=== PATIENT | female | born 1930 | race African-American/Black ===

== ENCOUNTER 2016-05-22 10:37 | Inpatient (IN) | payer SELFPAY ==
[~2016-05-22] VITALS: Ht 165.1 cm; Wt 80.9 kg
[2016-05-22] MEDS ORDERED: SODIUM CHLORIDE 0.9% 1,000 ML IV ONE (10:49)
[2016-05-22] MEDS ORDERED: MORPHINE SULFATE 2 MG/ML CPJ (NOT FOR IM USE) IV ONE (11:00)
[2016-05-22 11:45] LABS: BASOPHILS % 0.5 % (0.0-2.0); EOSINOPHILS % 0.7 % (0.0-5.0); HEMATOCRIT. 36.6 % (36.0-48.0); HEMOGLOBIN. 12.1 g/dL (12.0-16.0); LYMPHOCYTES % 14.2 % (20.0-50.0); MEAN CORPUSCULAR HEMOGLOBIN 28.6 pg (28.0-32.0); MEAN CORPUSCULAR VOLUME 86.7 fL (81.0-99.0); MEAN PLATELET VOLUME 7.2 fl (7.4-10.4); NEUTROPHILS % 78.6 % (40.0-76.0); PLATELET 247 x1000/uL (130-400); RED BLOOD CELL COUNT 4.22 mill/uL (4.2-5.4); RED CELL DISTRIBUTION WIDTH 15.2 % (11.6-14.6); WHITE BLOOD COUNT 7.5 x1000/uL (4.5-11.0)
[2016-05-22 11:52] LABS: CHLORIDE 109 mEq/L (98-107); INDEX HEMOLYSI 1 (1-3); INDEX ICTERIC 1 (1-4); INDEX LIPEMIC 1 (1-3)
[2016-05-22 11:54] LABS: ALBUMIN 2.9 g/dL (3.4-5.0); ANION GAP 11; CALCIUM 8.2 mg/dL (8.5-10.1); CARBON DIOXIDE 27 mEq/L (21-32); INR 1.1
[2016-05-22 11:59] LABS: ALANINE AMINOTRANSFERASE 15 IU/L (13-61); UREA NITROGEN BLOOD 18 mg/dL (7-21); eGFR > 60 mL/min (>60)
[2016-05-22 12:45] LABS: CLARITY URINE CLEAR (CLEAR); COLOR URINE YELLOW (YELLOW); GLUCOSE URINE 1+ (NEGATIVE); KETONES URINE NEGATIVE (NEGATIVE); LEUKOCYTE ESTERASE URINE 2+ (NEGATIVE); NITRITE URINE NEGATIVE (NEGATIVE); OCCULT BLOOD URINE 1+ (NEGATIVE); PH URINE 7.5 (4.5-8.0); PROTEIN URINE NEGATIVE (NEGATIVE); SPECIFIC GRAVITY URINE 1.014 (1.005-1.030)
[2016-05-22 13:09] LABS: BACTERIA URINE 1+; SQUAMOUS EPITHELIAL CELL URINE FEW /lpf (RARE/1+)
[2016-05-22] MEDS ORDERED: CLONIDINE 0.1MG TABLET PO PRN (14:15)
[2016-05-22] MEDS ORDERED: DIPHENHYDRAMINE 50MG/ML VIAL IV PRN (14:15)
[2016-05-22] MEDS ORDERED: MAGNESIUM/ALUMINUM HYDROXIDE/SIMETHICONE 30ML UDC PO PRN (14:15)
[2016-05-22] MEDS ORDERED: ONDANSETRON HCL 4MG/2ML VIAL IV PRN (14:15)
[2016-05-22 15:05] LABS: MAGNESIUM 1.9 mg/dL (1.8-2.4)
[2016-05-22] MEDS ORDERED: POTASSIUM CHLORIDE 20MEQ TABLET SR PO ONE (16:15)
[2016-05-22] MEDS ORDERED: CEFTRIAXONE 1 G PREMIX 50 ML IV ONE (16:15)
[2016-05-22 17:00] VITALS: BP 170/102
[2016-05-22 17:06] VITALS: BP 170/102
[2016-05-22] MEDS: DOCUSATE SODIUM 100MG CAPSULE PO SCH (17:49)
[2016-05-22] MEDS: MORPHINE SULFATE 2 MG/ML CPJ (NOT FOR IM USE) IV PRN (17:50)
[2016-05-22] MEDS ORDERED: MAGNESIUM 2 G PREMIX 50 ML IV NR (18:00)
[2016-05-22 20:00] VITALS: BP 143/92
[2016-05-22] MEDS: AMLODIPINE 5MG TABLET PO SCH (20:52)
[2016-05-22] MEDS ORDERED: POTASSIUM CHLORIDE 20MEQ TABLET SR PO NR (21:00)
[2016-05-22] MEDS ORDERED: DEXTROSE 50% WATER 50ML SYRINGE IV PRN (21:15)
[2016-05-22 22:45] VITALS: BP 92/42
[2016-05-22] MEDS ORDERED: DIGOXIN 500MCG/2ML AMP IV NR (22:45)
[2016-05-22] MEDS: SODIUM CHLORIDE 0.9% 1,000 ML IV SCH (23:13)
[2016-05-22 23:15] VITALS: BP 91/58
[2016-05-23] VITALS (12 sets, daily range): BP systolic 88–143; BP diastolic 52–77
[2016-05-23] MEDS ORDERED: DILTIAZEM HCL 125 MG in DEXT 5% WATER 100 ML IV ONE (02:15)
[2016-05-23 03:11] LABS: BASOPHILS % 0.3 % (0.0-2.0); EOSINOPHILS % 0.2 % (0.0-5.0); HEMOGLOBIN. 11.7 g/dL (12.0-16.0); LYMPHOCYTES % 12.8 % (20.0-50.0); MEAN CORPUSCULAR HEMOGLOBIN 28.9 pg (28.0-32.0); MEAN CORPUSCULAR HGB CONC 33.3 g/dL (31.0-37.0); MEAN CORPUSCULAR VOLUME 86.7 fL (81.0-99.0); MEAN PLATELET VOLUME 7.1 fl (7.4-10.4); NEUTROPHILS % 77.7 % (40.0-76.0); PLATELET 241 x1000/uL (130-400); RED BLOOD CELL COUNT 4.04 mill/uL (4.2-5.4); RED CELL DISTRIBUTION WIDTH 14.9 % (11.6-14.6); WHITE BLOOD COUNT 10.2 x1000/uL (4.5-11.0)
[2016-05-23] MEDS: DILTIAZEM HCL 125 MG in DEXT 5% WATER 100 ML IV PRN (03:35)
[2016-05-23] MEDS ORDERED: SODIUM CHLORIDE 0.9% 10ML VIAL ONE (06:00)
[2016-05-23] MEDS ORDERED: IOHEXOL-350 100 ML BOTTLE ONE (06:00)
[2016-05-23] MEDS: BLOOD SUGAR DIAGNOSTIC STRIP TEST SCH ×4 (06:53→21:24)
[2016-05-23] MEDS: INSULIN LISPRO 100 UNITS/ML SUBCUT SCH ×4 (07:20→21:00)
[2016-05-23] MEDS ORDERED: POTASSIUM CHLORIDE 20MEQ TABLET SR PO SCH (09:00)
[2016-05-23 09:07] LABS: T4 FREE 0.9 ng/dL (0.76-1.46)
[2016-05-23] MEDS ORDERED: AMIODARONE HCL 900 MG in DEXT 5% WATER 500 ML IV SCH (09:30)
[2016-05-23] MEDS: ENOXAPARIN 40MG/0.4ML SYR SUBCUT SCH ×2 (10:00→11:22)
[2016-05-23] MEDS: DIGOXIN 500MCG/2ML AMP IV NR ×2 (10:20→10:42)
[2016-05-23] MEDS: DOCUSATE SODIUM 100MG CAPSULE PO SCH ×2 (10:27→17:07)
[2016-05-23] MEDS: PANTOPRAZOLE SODIUM 40 MG/VIAL IV SCH (10:27)
[2016-05-23] MEDS: AMLODIPINE 5MG TABLET PO SCH ×2 (10:28→21:24)
[2016-05-23] MEDS: MORPHINE SULFATE 2 MG/ML CPJ (NOT FOR IM USE) IV PRN ×3 (10:31→23:14)
[2016-05-23] MEDS: LEVOTHYROXINE SODIUM 100MCG TABLET PO SCH (13:01)
[2016-05-23 15:22] LABS: CREATINE KINASE MB FRACTION 3.8 ng/mL (0.5-3.6)
[2016-05-23 15:27] LABS: TROPONIN I 0.44 ng/mL (0.00-0.04)
[2016-05-23] MEDS ORDERED: LEVO88TA2 PO (18:27)
[2016-05-23] MEDS ORDERED: ATOR40TA70 PO (18:27)
[2016-05-23] MEDS ORDERED: CHLO25TA27 PO (18:27)
[2016-05-23] MEDS ORDERED: DILT240C91 PO (18:27)
[2016-05-23] MEDS ORDERED: LISI-604 PO (18:27)
[2016-05-23] MEDS: SODIUM CHLORIDE 0.9% 1,000 ML IV SCH (20:20)
[2016-05-23 23:10] LABS: CREATINE KINASE MB FRACTION 2.5 ng/mL (0.5-3.6); TROPONIN I 0.32 ng/mL (0.00-0.04)
[2016-05-24] VITALS (10 sets, daily range): BP systolic 104–184; BP diastolic 60–128
[2016-05-24] MEDS: SODIUM CHLORIDE 0.9% 1,000 ML IV SCH ×2 (03:03→15:26)
[2016-05-24] MEDS: MORPHINE SULFATE 2 MG/ML CPJ (NOT FOR IM USE) IV PRN ×3 (03:15→20:24)
[2016-05-24] MEDS: LEVOTHYROXINE SODIUM 100MCG TABLET PO SCH (06:09)
[2016-05-24] MEDS: BLOOD SUGAR DIAGNOSTIC STRIP TEST SCH ×4 (06:48→20:28)
[2016-05-24] MEDS: INSULIN LISPRO 100 UNITS/ML SUBCUT SCH ×4 (06:48→20:28)
[2016-05-24 07:24] LABS: CREATINE KINASE MB FRACTION 2.1 ng/mL (0.5-3.6); TROPONIN I 0.21 ng/mL (0.00-0.04)
[2016-05-24] MEDS: DOCUSATE SODIUM 100MG CAPSULE PO SCH ×2 (10:00→17:00)
[2016-05-24] MEDS: ENOXAPARIN 40MG/0.4ML SYR SUBCUT SCH (10:00)
[2016-05-24] MEDS: AMLODIPINE 5MG TABLET PO SCH ×2 (10:00→20:52)
[2016-05-24] MEDS: PANTOPRAZOLE SODIUM 40 MG/VIAL IV SCH (10:51)
[2016-05-24] MEDS ORDERED: HYDRALAZINE 20MG/ML VIAL IV NR (14:45)
[2016-05-24] MEDS ORDERED: VANCOMYCIN HCL 500 MG/VIAL ONE (14:54)
[2016-05-24] MEDS ORDERED: BACITRACIN ZINC 15GM TUBE TOP ONE (15:48)
[2016-05-24] MEDS ORDERED: NORMAL SALINE 0.9% 10 ML SYR ONE (16:29)
[2016-05-24] MEDS ORDERED: FENTANYL CITRATE/PF 50MCG/ML 2ML VIAL ONE (17:53)
[2016-05-24] MEDS ORDERED: ONDANSETRON HCL 4MG/2ML VIAL ONE (18:25)
[2016-05-24] MEDS ORDERED: GLYCOPYRROLATE 0.2 MG/ML 2ML VIAL ONE (18:27)
[2016-05-24] MEDS ORDERED: NEOSTIGMINE METHYLSULFATE 1MG/ML 10 ML VIAL ONE (18:27)
[2016-05-24] MEDS ORDERED: SODIUM CHLORIDE 0.9% 1,000 ML IV SCH (18:57)
[2016-05-24] MEDS ORDERED: ONDANSETRON HCL 4MG/2ML VIAL IV PRN (19:00)
[2016-05-24] MEDS ORDERED: HYDROMORPHONE HCL/PF 2MG/ML CPJ IV PRN (19:00)
[2016-05-24] MEDS: METOPROLOL TARTRATE 25MG TABLET PO SCH (20:52)
[2016-05-24] MEDS ORDERED: CEFAZOLIN SODIUM 1000MG/VIAL IV SCH (22:00)
[2016-05-24] MEDS: CEFAZOLIN 1000MG PREMIX 50 ML IV SCH (22:27)
[2016-05-24] MEDS: HYDROMORPHONE HCL/PF 2MG/ML CPJ IV PRN (23:05)
[2016-05-25] VITALS (12 sets, daily range): BP systolic 98–141; BP diastolic 27–107
[2016-05-25] MEDS: SODIUM CHLORIDE 0.9% 1,000 ML IV SCH ×3 (01:52→20:40)
[2016-05-25] MEDS: MORPHINE SULFATE 2 MG/ML CPJ (NOT FOR IM USE) IV PRN (03:01)
[2016-05-25] MEDS: CEFAZOLIN 1000MG PREMIX 50 ML IV SCH (06:19)
[2016-05-25] MEDS: BLOOD SUGAR DIAGNOSTIC STRIP TEST SCH ×4 (06:19→20:40)
[2016-05-25] MEDS: LEVOTHYROXINE SODIUM 100MCG TABLET PO SCH (06:19)
[2016-05-25] MEDS: FAMOTIDINE 20MG TABLET PO SCH (06:19)
[2016-05-25] MEDS: HYDROMORPHONE HCL/PF 2MG/ML CPJ IV PRN (06:56)
[2016-05-25] MEDS: DOCUSATE SODIUM 100MG CAPSULE PO SCH ×2 (08:13→16:32)
[2016-05-25] MEDS: AMLODIPINE 5MG TABLET PO SCH ×2 (08:14→20:39)
[2016-05-25] MEDS: ENOXAPARIN 40MG/0.4ML SYR SUBCUT SCH (08:14)
[2016-05-25] MEDS: METOPROLOL TARTRATE 25MG TABLET PO SCH ×2 (08:14→20:39)
[2016-05-25] MEDS: INSULIN LISPRO 100 UNITS/ML SUBCUT SCH ×4 (08:15→20:40)
[2016-05-25] MEDS: ACETAMINOPHEN 325MG TABLET PO PRN ×2 (17:15→23:14)
[2016-05-26] VITALS (13 sets, daily range): BP systolic 41–120; BP diastolic 17–67
[2016-05-26] MEDS: LEVOTHYROXINE SODIUM 100MCG TABLET PO SCH (06:31)
[2016-05-26] MEDS: SODIUM CHLORIDE 0.9% 1,000 ML IV SCH ×2 (06:31→15:48)
[2016-05-26] MEDS: BLOOD SUGAR DIAGNOSTIC STRIP TEST SCH ×4 (06:31→20:40)
[2016-05-26] MEDS: FAMOTIDINE 20MG TABLET PO SCH (06:31)
[2016-05-26] MEDS: INSULIN LISPRO 100 UNITS/ML SUBCUT SCH ×4 (06:32→20:40)
[2016-05-26 06:56] LABS: BASOPHILS % 0.4 % (0.0-2.0); EOSINOPHILS % 1.7 % (0.0-5.0); HEMATOCRIT. 31.5 % (36.0-48.0); HEMOGLOBIN. 10.4 g/dL (12.0-16.0); LYMPHOCYTES % 9.6 % (20.0-50.0); MEAN CORPUSCULAR HEMOGLOBIN 28.9 pg (28.0-32.0); MEAN CORPUSCULAR HGB CONC 33.1 g/dL (31.0-37.0); MEAN CORPUSCULAR VOLUME 87.1 fL (81.0-99.0); MEAN PLATELET VOLUME 7.4 fl (7.4-10.4); MONOCYTES % 12.4 % (2.0-8.0); NEUTROPHILS % 75.9 % (40.0-76.0); PLATELET 211 x1000/uL (130-400); RED BLOOD CELL COUNT 3.61 mill/uL (4.2-5.4); RED CELL DISTRIBUTION WIDTH 14.9 % (11.6-14.6); WHITE BLOOD COUNT 10.5 x1000/uL (4.5-11.0)
[2016-05-26 07:38] LABS: ANION GAP 13; CALCIUM 8.3 mg/dL (8.5-10.1); CARBON DIOXIDE 25 mEq/L (21-32); CHLORIDE 106 mEq/L (98-107); INDEX HEMOLYSI 1 (1-3); INDEX ICTERIC 1 (1-4); INDEX LIPEMIC 1 (1-3); UREA NITROGEN BLOOD 11 mg/dL (7-21)
[2016-05-26 07:40] LABS: eGFR > 60 mL/min (>60)
[2016-05-26] MEDS: ASPIRIN 81MG TABLET PO SCH (08:50)
[2016-05-26] MEDS: DOCUSATE SODIUM 100MG CAPSULE PO SCH ×2 (08:50→17:20)
[2016-05-26] MEDS: ENOXAPARIN 40MG/0.4ML SYR SUBCUT SCH (08:50)
[2016-05-26] MEDS: METOPROLOL TARTRATE 25MG TABLET PO SCH ×2 (08:53→20:39)
[2016-05-26] MEDS: AMLODIPINE 5MG TABLET PO SCH ×2 (08:53→20:39)
[2016-05-26] MEDS: ACETAMINOPHEN 325MG TABLET PO PRN ×2 (10:56→17:41)
[2016-05-26] MEDS: DILTIAZEM HCL 125 MG in DEXT 5% WATER 100 ML IV PRN (16:57)
[2016-05-26] MEDS ORDERED: DIGOXIN 500MCG/2ML AMP IV NR (17:15)
[2016-05-26] MEDS: MORPHINE SULFATE 2 MG/ML CPJ (NOT FOR IM USE) IV PRN (17:54)
[2016-05-27] VITALS (12 sets, daily range): BP systolic 108–169; BP diastolic 48–104
[2016-05-27] MEDS: ACETAMINOPHEN 325MG TABLET PO PRN ×4 (02:05→21:18)
[2016-05-27] MEDS: SODIUM CHLORIDE 0.9% 1,000 ML IV SCH ×2 (02:37→13:39)
[2016-05-27] MEDS: FAMOTIDINE 20MG TABLET PO SCH (06:21)
[2016-05-27] MEDS: LEVOTHYROXINE SODIUM 100MCG TABLET PO SCH (06:21)
[2016-05-27] MEDS: BLOOD SUGAR DIAGNOSTIC STRIP TEST SCH ×4 (06:21→20:28)
[2016-05-27] MEDS: INSULIN LISPRO 100 UNITS/ML SUBCUT SCH ×4 (07:18→20:27)
[2016-05-27] MEDS: ENOXAPARIN 40MG/0.4ML SYR SUBCUT SCH (08:22)
[2016-05-27] MEDS: AMLODIPINE 5MG TABLET PO SCH (08:23)
[2016-05-27] MEDS: DOCUSATE SODIUM 100MG CAPSULE PO SCH ×2 (08:23→17:36)
[2016-05-27] MEDS: METOPROLOL TARTRATE 25MG TABLET PO SCH ×2 (08:23→20:27)
[2016-05-27] MEDS: ASPIRIN 81MG TABLET PO SCH (08:23)
[2016-05-27] MEDS: MORPHINE SULFATE 2 MG/ML CPJ (NOT FOR IM USE) IV PRN (10:01)
[2016-05-27] MEDS: HYDROCODONE/ACETAMINOPHEN 10/325MG TABLET PO PRN (18:39)
[2016-05-27] MEDS: DILTIAZEM HCL 90MG TABLET PO SCH (21:18)
[2016-05-28] VITALS (12 sets, daily range): BP systolic 97–151; BP diastolic 46–78
[2016-05-28] MEDS: HYDROCODONE/ACETAMINOPHEN 10/325MG TABLET PO PRN ×2 (00:44→11:39)
[2016-05-28] MEDS: ACETAMINOPHEN 325MG TABLET PO PRN (02:38)
[2016-05-28] MEDS: FAMOTIDINE 20MG TABLET PO SCH (06:20)
[2016-05-28] MEDS: LEVOTHYROXINE SODIUM 100MCG TABLET PO SCH (06:20)
[2016-05-28] MEDS: DILTIAZEM HCL 90MG TABLET PO SCH ×3 (06:21→21:28)
[2016-05-28] MEDS: BLOOD SUGAR DIAGNOSTIC STRIP TEST SCH ×4 (06:21→20:22)
[2016-05-28] MEDS: INSULIN LISPRO 100 UNITS/ML SUBCUT SCH ×4 (07:20→20:21)
[2016-05-28] MEDS: DOCUSATE SODIUM 100MG CAPSULE PO SCH ×2 (08:21→16:24)
[2016-05-28] MEDS: METOPROLOL TARTRATE 25MG TABLET PO SCH ×2 (08:21→20:21)
[2016-05-28] MEDS: ASPIRIN 81MG TABLET PO SCH (08:21)
[2016-05-28] MEDS: ENOXAPARIN 40MG/0.4ML SYR SUBCUT SCH (08:21)
[2016-05-29] VITALS (11 sets, daily range): BP systolic 102–154; BP diastolic 33–93
[2016-05-29] MEDS: HYDROCODONE/ACETAMINOPHEN 10/325MG TABLET PO PRN ×3 (00:49→14:19)
[2016-05-29] MEDS: DILTIAZEM HCL 90MG TABLET PO SCH ×3 (05:50→22:10)
[2016-05-29] MEDS: LEVOTHYROXINE SODIUM 100MCG TABLET PO SCH (05:52)
[2016-05-29] MEDS: BLOOD SUGAR DIAGNOSTIC STRIP TEST SCH ×4 (05:52→21:00)
[2016-05-29] MEDS: FAMOTIDINE 20MG TABLET PO SCH (05:52)
[2016-05-29] MEDS: INSULIN LISPRO 100 UNITS/ML SUBCUT SCH ×4 (07:20→21:00)
[2016-05-29] MEDS: DOCUSATE SODIUM 100MG CAPSULE PO SCH (08:21)
[2016-05-29] MEDS: ASPIRIN 81MG TABLET PO SCH (08:21)
[2016-05-29] MEDS: ENOXAPARIN 40MG/0.4ML SYR SUBCUT SCH (08:27)
[2016-05-29] MEDS: METOPROLOL TARTRATE 25MG TABLET PO SCH ×2 (08:27→22:10)
[2016-05-29] MEDS: ACETAMINOPHEN 325MG TABLET PO PRN ×2 (11:24)
[2016-05-29] MEDS ORDERED: BISACODYL 10MG SUPP PR PRN (14:30)
[2016-05-29] MEDS ORDERED: DOCUSATE SODIUM 100MG CAPSULE PO SCH (17:00)
[2016-05-29] MEDS: DOCUSATE SODIUM 250MG CAPSULE PO SCH (19:00)
[2016-05-29] MEDS: LACTULOSE 20G/30ML UDC PO SCH (22:10)
[2016-05-30] VITALS: BP 96/64
[2016-05-30] MEDS: ACETAMINOPHEN 325MG TABLET PO PRN (02:17)
[2016-05-30 04:00] VITALS: BP 156/84
[2016-05-30] MEDS: FAMOTIDINE 20MG TABLET PO SCH (06:31)
[2016-05-30] MEDS: DILTIAZEM HCL 90MG TABLET PO SCH ×3 (06:31→22:00)
[2016-05-30] MEDS: LEVOTHYROXINE SODIUM 100MCG TABLET PO SCH (06:32)
[2016-05-30] MEDS: BLOOD SUGAR DIAGNOSTIC STRIP TEST SCH ×4 (06:35→20:37)
[2016-05-30] MEDS: INSULIN LISPRO 100 UNITS/ML SUBCUT SCH ×4 (07:50→20:42)
[2016-05-30 08:00] VITALS: BP 140/79
[2016-05-30] MEDS: ASPIRIN 81MG TABLET PO SCH (09:17)
[2016-05-30] MEDS: HYDROCODONE/ACETAMINOPHEN 10/325MG TABLET PO PRN (09:17)
[2016-05-30] MEDS: DOCUSATE SODIUM 250MG CAPSULE PO SCH ×2 (09:18→18:02)
[2016-05-30] MEDS: ENOXAPARIN 40MG/0.4ML SYR SUBCUT SCH (09:20)
[2016-05-30] MEDS: METOPROLOL TARTRATE 25MG TABLET PO SCH ×2 (09:45→20:37)
[2016-05-30 12:00] VITALS: BP 115/66
[2016-05-30 16:00] VITALS: BP 117/65
[2016-05-30 20:00] VITALS: BP 131/72
[2016-05-30] MEDS: LACTULOSE 20G/30ML UDC PO SCH (20:37)
[2016-05-31] VITALS: BP 114/69
[2016-05-31] MEDS: ACETAMINOPHEN 325MG TABLET PO PRN ×2 (00:37→05:57)
[2016-05-31 05:00] VITALS: BP 105/65
[2016-05-31] MEDS: DILTIAZEM HCL 90MG TABLET PO SCH ×3 (06:00→22:35)
[2016-05-31] MEDS: LEVOTHYROXINE SODIUM 100MCG TABLET PO SCH (06:31)
[2016-05-31] MEDS: FAMOTIDINE 20MG TABLET PO SCH (06:31)
[2016-05-31] MEDS: BLOOD SUGAR DIAGNOSTIC STRIP TEST SCH ×4 (06:35→22:38)
[2016-05-31] MEDS: INSULIN LISPRO 100 UNITS/ML SUBCUT SCH ×4 (07:50→21:00)
[2016-05-31 08:00] VITALS: BP 131/98
[2016-05-31] MEDS: TRAMADOL 50MG TABLET PO PRN ×2 (08:35→22:37)
[2016-05-31] MEDS: METOPROLOL TARTRATE 25MG TABLET PO SCH ×2 (08:38→22:35)
[2016-05-31] MEDS: ENOXAPARIN 40MG/0.4ML SYR SUBCUT SCH (08:38)
[2016-05-31] MEDS: DOCUSATE SODIUM 250MG CAPSULE PO SCH ×2 (08:38→17:51)
[2016-05-31] MEDS: ASPIRIN 81MG TABLET PO SCH (09:00)
[2016-05-31 12:00] VITALS: BP 91/52
[2016-05-31 16:00] VITALS: BP 136/92
[2016-05-31 20:00] VITALS: BP 135/75
[2016-05-31] MEDS: LACTULOSE 20G/30ML UDC PO SCH (22:34)
[2016-06-01] MEDS: FAMOTIDINE 20MG TABLET PO SCH (07:01)
[2016-06-01] MEDS: DILTIAZEM HCL 90MG TABLET PO SCH ×3 (07:01→21:46)
[2016-06-01] MEDS: LEVOTHYROXINE SODIUM 100MCG TABLET PO SCH (07:01)
[2016-06-01] MEDS: BLOOD SUGAR DIAGNOSTIC STRIP TEST SCH ×4 (07:03→21:49)
[2016-06-01] MEDS: INSULIN LISPRO 100 UNITS/ML SUBCUT SCH ×4 (07:50→21:00)
[2016-06-01 08:00] VITALS: BP 103/58
[2016-06-01] MEDS: METOPROLOL TARTRATE 25MG TABLET PO SCH ×2 (09:00→21:40)
[2016-06-01] MEDS: ASPIRIN 81MG TABLET PO SCH ×2 (09:00→09:35)
[2016-06-01] MEDS: DOCUSATE SODIUM 250MG CAPSULE PO SCH ×2 (09:35→19:04)
[2016-06-01] MEDS: ENOXAPARIN 40MG/0.4ML SYR SUBCUT SCH (09:36)
[2016-06-01 12:00] VITALS: BP 96/60
[2016-06-01 16:00] VITALS: BP 107/65
[2016-06-01] MEDS: ACETAMINOPHEN 325MG TABLET PO PRN (19:15)
[2016-06-01 20:00] VITALS: BP 133/86
[2016-06-01] MEDS: LACTULOSE 20G/30ML UDC PO SCH (21:37)
[2016-06-01] MEDS: TRAMADOL 50MG TABLET PO PRN (21:39)
[2016-06-02 06:19] LABS: HEMATOCRIT 29.9 % (36.0-48.0); MEAN CORPUSCULAR HEMOGLOBIN 28.8 pg (28.0-32.0); MEAN CORPUSCULAR HGB CONC 33.5 g/dL (31.0-37.0); PLATELET 456 x1000/uL (130-400); RED BLOOD CELL COUNT 3.47 mill/uL (4.2-5.4); RED CELL DISTRIBUTION WIDTH 14.9 % (11.6-14.6); WHITE BLOOD COUNT 7.6 x1000/uL (4.5-11.0)
[2016-06-02] MEDS: FAMOTIDINE 20MG TABLET PO SCH (07:04)
[2016-06-02] MEDS: LEVOTHYROXINE SODIUM 100MCG TABLET PO SCH (07:05)
[2016-06-02] MEDS: DILTIAZEM HCL 90MG TABLET PO SCH ×3 (07:05→21:39)
[2016-06-02] MEDS: BLOOD SUGAR DIAGNOSTIC STRIP TEST SCH ×4 (07:08→21:39)
[2016-06-02] MEDS: INSULIN LISPRO 100 UNITS/ML SUBCUT SCH ×4 (07:50→21:00)
[2016-06-02 08:00] VITALS: BP 108/59
[2016-06-02] MEDS: METOPROLOL TARTRATE 25MG TABLET PO SCH ×2 (09:00→21:00)
[2016-06-02] MEDS: ASPIRIN 81MG TABLET PO SCH (09:05)
[2016-06-02] MEDS: DOCUSATE SODIUM 250MG CAPSULE PO SCH ×2 (09:05→16:59)
[2016-06-02] MEDS: TRAMADOL 50MG TABLET PO PRN (09:06)
[2016-06-02] MEDS: ENOXAPARIN 40MG/0.4ML SYR SUBCUT SCH (09:07)
[2016-06-02 12:00] VITALS: BP 101/59
[2016-06-02 16:00] VITALS: BP 134/83
[2016-06-02] MEDS: LACTULOSE 20G/30ML UDC PO SCH (21:00)
[2016-06-02] MEDS ORDERED: DIGOXIN 500MCG/2ML AMP IV NR ×2 (21:27→23:37)
[2016-06-02] MEDS ORDERED: SODIUM CHLORIDE 0.9% 250 ML IV NR (21:32)
[2016-06-02 22:00] VITALS: BP 81/59
[2016-06-03] VITALS (12 sets, daily range): BP systolic 82–153; BP diastolic 24–74
[2016-06-03] MEDS: ACETAMINOPHEN 325MG TABLET PO PRN ×2 (01:32→21:27)
[2016-06-03 02:15] LABS: CHLORIDE 103 mEq/L (98-107); INDEX HEMOLYSI 1 (1-3); INDEX ICTERIC 1 (1-4); INDEX LIPEMIC 1 (1-3)
[2016-06-03 02:31] LABS: ANION GAP 15; CALCIUM 8.7 mg/dL (8.5-10.1); CARBON DIOXIDE 25 mEq/L (21-32); UREA NITROGEN BLOOD 18 mg/dL (7-21); eGFR > 60 mL/min (>60)
[2016-06-03] MEDS ORDERED: DIGOXIN 500MCG/2ML AMP IV STA (02:55)
[2016-06-03] MEDS: DILTIAZEM HCL 90MG TABLET PO SCH ×3 (06:00→21:18)
[2016-06-03] MEDS: BLOOD SUGAR DIAGNOSTIC STRIP TEST SCH ×4 (06:40→21:18)
[2016-06-03] MEDS: FAMOTIDINE 20MG TABLET PO SCH (06:41)
[2016-06-03] MEDS: LEVOTHYROXINE SODIUM 100MCG TABLET PO SCH (06:41)
[2016-06-03] MEDS: INSULIN LISPRO 100 UNITS/ML SUBCUT SCH ×4 (06:49→21:00)
[2016-06-03] MEDS: LEVOTHYROXINE SODIUM 200MCG TABLET PO SCH (08:30)
[2016-06-03] MEDS: DOCUSATE SODIUM 250MG CAPSULE PO SCH ×2 (08:44→18:02)
[2016-06-03] MEDS: ASPIRIN 81MG TABLET PO SCH (08:44)
[2016-06-03] MEDS: METOPROLOL TARTRATE 25MG TABLET PO SCH ×2 (08:44→21:00)
[2016-06-03] MEDS: ENOXAPARIN 40MG/0.4ML SYR SUBCUT SCH (08:45)
[2016-06-03] MEDS: TRAMADOL 50MG TABLET PO PRN (16:07)
[2016-06-03] MEDS: LACTULOSE 20G/30ML UDC PO SCH (21:26)
[2016-06-04] VITALS (14 sets, daily range): BP systolic 99–137; BP diastolic 55–91
[2016-06-04] MEDS: ACETAMINOPHEN 325MG TABLET PO PRN ×2 (03:26→09:52)
[2016-06-04] MEDS: FAMOTIDINE 20MG TABLET PO SCH (06:47)
[2016-06-04] MEDS: LEVOTHYROXINE SODIUM 200MCG TABLET PO SCH (06:47)
[2016-06-04] MEDS: DILTIAZEM HCL 90MG TABLET PO SCH ×3 (06:47→22:09)
[2016-06-04] MEDS: BLOOD SUGAR DIAGNOSTIC STRIP TEST SCH ×4 (06:47→20:26)
[2016-06-04] MEDS: INSULIN LISPRO 100 UNITS/ML SUBCUT SCH ×4 (06:49→20:26)
[2016-06-04] MEDS: ENOXAPARIN 40MG/0.4ML SYR SUBCUT SCH (08:21)
[2016-06-04] MEDS: DOCUSATE SODIUM 250MG CAPSULE PO SCH ×2 (08:21→17:51)
[2016-06-04] MEDS: METOPROLOL TARTRATE 25MG TABLET PO SCH ×2 (08:21→20:26)
[2016-06-04] MEDS: ASPIRIN 81MG TABLET PO SCH (08:21)
[2016-06-04] MEDS ORDERED: DIGOXIN 125MCG TABLET PO NR (18:30)
[2016-06-04] MEDS: LACTULOSE 20G/30ML UDC PO SCH (20:26)
[2016-06-05] VITALS (11 sets, daily range): BP systolic 96–150; BP diastolic 44–85
[2016-06-05] MEDS: ACETAMINOPHEN 325MG TABLET PO PRN (04:30)
[2016-06-05] MEDS: FAMOTIDINE 20MG TABLET PO SCH (06:07)
[2016-06-05] MEDS: LEVOTHYROXINE SODIUM 200MCG TABLET PO SCH (06:07)
[2016-06-05] MEDS: BLOOD SUGAR DIAGNOSTIC STRIP TEST SCH ×3 (06:08→17:16)
[2016-06-05] MEDS: DILTIAZEM HCL 90MG TABLET PO SCH ×2 (06:08→14:17)
[2016-06-05] MEDS: INSULIN LISPRO 100 UNITS/ML SUBCUT SCH ×3 (06:33→17:16)
[2016-06-05] MEDS: DOCUSATE SODIUM 250MG CAPSULE PO SCH ×2 (08:33→17:00)
[2016-06-05] MEDS: ENOXAPARIN 40MG/0.4ML SYR SUBCUT SCH (08:35)
[2016-06-05] MEDS: ASPIRIN 81MG TABLET PO SCH (08:36)
[2016-06-05] MEDS: METOPROLOL TARTRATE 25MG TABLET PO SCH (08:36)
== END 2016-06-05 19:42 | disposition home or self-care (01) | DRG 308 ==
LOC: EDBD 10:37 → ER 11:26 → 8WST 13:05 → 3WST 05-23 02:51 → 6EST 05-29 20:11 → 3WST 06-02 21:17
PROVIDERS: ADMIT Internal Medicine; ATTEND Internal Medicine
PROC: 0QS706Z Reposition Left Upper Femur with Intramedullary Internal Fixation Device, Open Approach (ICD-10-PCS; principal; 2016-05-24 16:00)
DX: S72.142A Displaced intertrochanteric fracture of left femur, initial encounter for closed fracture (principal); G92 Toxic encephalopathy; E44.0 Moderate protein-calorie malnutrition; N39.0 Urinary tract infection, site not specified; I47.1 Supraventricular tachycardia; I48.91 Unspecified atrial fibrillation; E11.9 Type 2 diabetes mellitus without complications; I10 Essential (primary) hypertension; E03.9 Hypothyroidism, unspecified; E87.6 Hypokalemia; Z68.33 Body mass index [BMI] 33.0-33.9, adult; M17.12 Unilateral primary osteoarthritis, left knee; Y93.01 Activity, walking, marching and hiking; I35.0 Nonrheumatic aortic (valve) stenosis; W01.0XXA Fall on same level from slipping, tripping and stumbling without subsequent striking against object, initial encounter; Y92.89 Other specified places as the place of occurrence of the external cause; Y99.8 Other external cause status
CPT/HCPCS: 36415; 71010; 71275; 73502; 73560; 80048; 80051; 80053; 80061; 81001; 82550; 82553; 82962; 83036; 83735; 83880; 84439; 84443; 84484; 85025; 85027; 85379; 85610; 86850; 86900; 86920; 93005; 93306; 96374; 97110; 97116; 97162; 97164; 97530; 99285; A4216; A6261; C9113; J0282; J0360; J0690; J1160; J1170; J1200; J1650; J1815; J2270; J2405; J2710; J3010; J3370; J3475; J3490; J7030; J7050; J7060; Q9967; A4315